=== PATIENT | male | born 1940 | race Caucasian/White ===

== ENCOUNTER 2018-09-06 18:14 | Emergency (ER) | payer MEDICARE, BC ==
[2018-09-06 19:12] VITALS: TEMP 97.1
[2018-09-06] MEDS ORDERED: KETOROLAC TROMETHAMINE 30 MG/ML SOL IV ONE (19:14)
[2018-09-06 19:28] LABS: BASOPHILS % (AUTO) 1 % (0-3); EOSINOPHILS % (AUTO) 2 % (0-9); HEMATOCRIT 47 % (39-53); HEMOGLOBIN 15.4 gm/dl (13.5-17.7); LYMPHOCYTES % (AUTO) 8.7 % (10-50); MEAN CORPUSCULAR HEMOGLOBIN 29.1 pg (27.0-32.0); MEAN CORPUSCULAR VOLUME 88 fL (80-100); MONOCYTES % (AUTO) 7.3 % (0-12)
[2018-09-06] MEDS ORDERED: KETOROLAC TROMETHAMINE 30 MG/ML SOL ONE (19:28)
[2018-09-06] MEDS: SODIUM CHLORIDE 0.9% 1000ML 1,000 ML IV SCH ×3 (19:35→21:17)
[2018-09-06 19:38] LABS: INR 1.05 (0.86-1.12)
[2018-09-06 19:45] LABS: ALBUMIN 3.7 gm/dl (3.4-5.0); BILIRUBIN,TOTAL 1.1 mg/dl (0.2-1.0); CALCIUM 9.3 mg/dl (8.5-10.1); CARBON DIOXIDE 23.8 mEq/L (21-32); CREATININE 1.53 mg/dl (0.80-1.30); POTASSIUM 4.1 mMol/L (3.5-5.1); TOTAL PROTEIN 6.9 gm/dl (6.4-8.2)
[2018-09-06 20:25] LABS: APPEARANCE,URINE Cloudy; BILIRUBIN,URINE NEGATIVE (NEGATIVE); COLOR,URINE Yellow; GLUCOSE, URINE (UA) 2+ (NEGATIVE); KETONES,URINE TRACE (NEGATIVE); LEUKOCYTE ESTERASE ,URINE 1+ (NEGATIVE); NITRATE,URINE NEGATIVE (NEGATIVE); OCCULT BLOOD,URINE 3+ (NEG-TRACE); UROBILINOGEN,URINE 0.2 (0.2-1.0 EU)
[2018-09-06 20:40] LABS: EPITHELIAL CELLS 0-4 (SQUAMOUS); RBC,URINE 90-100 (0-3AV/HPF); WBC,URINE 0-5 (0-5AV/HPF)
[2018-09-06 20:42] LABS: BACTERIA 2+ (< 1+); CRYSTALS 2-6 URIC ACID (0-3 AVE/HPF)
[2018-09-06 21:06] VITALS: RESP 20
[2018-09-06 21:40] VITALS: BP 162/80; PULSE 74; O2SAT 95
== END 2018-09-06 21:39 | disposition home or self-care (01) | DRG 694 ==
LOC: ED 18:14
DX: N20.0 Calculus of kidney (principal); Z87.442 Personal history of urinary calculi
CPT/HCPCS: 74176; 80053; 81001; 85025; 85610; 87088; 96365; 96374; 99284; J1885